=== PATIENT | female | born 1970 | race Caucasian/White ===

== ENCOUNTER 2021-09-20 09:22 | Outpatient (CLI) | payer OTHER ==
[~2021-09-20 09:22] MED LIST: DICLOFENAC POTA50 MG PO; NORFLEX100MG PO
== END 2021-09-20 09:31 | disposition home or self-care (01) ==
LOC: SONOGRAMA 09:22
PROVIDERS: ATTEND Physical Medicine & Rehabilitation
DX: M67.431 Ganglion, right wrist (principal); M65.4 Radial styloid tenosynovitis [de Quervain]

== ENCOUNTER 2021-09-28 08:30 | Outpatient (CLI) | payer OTHER | END 2021-09-28 08:33 | disposition home or self-care (01) | LOC: NUCLEAR 08:30 | PROVIDERS: ATTEND Physical Medicine & Rehabilitation | DX: I77.0 Arteriovenous fistula, acquired (principal) ==

== ENCOUNTER 2021-11-09 07:31 | Outpatient (CLI) | payer OTHER | END 2021-11-09 07:45 | disposition home or self-care (01) | LOC: MRI 07:31 | PROVIDERS: ATTEND Physical Medicine & Rehabilitation | DX: M65.9 Synovitis and tenosynovitis, unspecified (principal) | CPT/HCPCS: 73223 ==